=== PATIENT | male | born 1960 | race Caucasian/White ===

== ENCOUNTER 2017-01-25 16:48 | Emergency (ER) | payer MEDICAID ==
[~2017-01-25] VITALS: Ht 170.2 cm; Wt 88.5 kg
--- NOTE | 2017-01-25 17:00 | NUR ---
PT BIB [facility]/P MULTIPLE SZ EPISODES TODAY. NO HEAD TRAUMA OR ORAL TRAUMA. PT STATES HE FEELS "NOT RIGHT" AND "OFF", REPORTS VERY MILD SLURRING OF SPEECH COMPARED TO BASELINE BUT PT IS EASY TO UNDRSTAND. NO APHASIA. NO NEURO DEFICITS NOTED. A/OX4. NO OTHER STROKE SYMPTOMS NOTED. MD IS AWARE OF SLURRED SPEECH. RESP EVEN UNLABORED. SKIN WARM NONDIAPHORETIC. IN ER BED 11 ON MONITOR.
[2017-01-25 17:57] LABS: BASOPHILS # (AUTO) 0.1 /CMM (0.0-0.2); BASOPHILS % (AUTO) 2.5 % (0.0-2.0); EOSINOPHILS # (AUTO) 0.1 /CMM (0.0-0.7); EOSINOPHILS % (AUTO) 2.3 % (0.0-6.0); HEMATOCRIT 42 % (39-51); HEMOGLOBIN 14.6 g/dL (13.5-17.5); LYMPHOCYTES # (AUTO) 1.9 /CMM (0.8-4.8); LYMPHOCYTES % (AUTO) 34.1 % (20.0-44.0); MEAN CORPUSCULAR HEMOGLOBIN 31 PG (26.0-33.0); MEAN CORPUSCULAR HGB CONC 35 g/dl (31.0-36.0); MEAN CORPUSCULAR VOLUME 90 fL (80-96); MONOCYTES # (AUTO) 0.4 /CMM (0.1-1.30); MONOCYTES % (AUTO) 7.9 % (2.0-12.0); NEUTROPHILS # (AUTO) 3.1 /CMM (1.8-8.9); NEUTROPHILS % (AUTO) 53.2 % (43.0-81.0); PLATELET COUNT (AUTO) 236 /CMM (150-450); RDW COEFFICIENT OF VARIATION 12.4 (11.5-15.0); RED BLOOD CELL COUNT(AUTO) 4.67 MIL/uL (4.5-6.0); WHITE BLOOD COUNT (AUTO) 5.6 K/uL (4.3-11.0)
--- NOTE | 2017-01-25 18:42 | NUR ---
RESTING QUIETLY, NAD NOTED. NO FURTHER SEIZURE ACITIVITY NOTED. SEIZURE PRECAUTIONS REMAIN IN PLACE FOR SAFETY.
[2017-01-25 18:55] LABS: ACETAMINOPHEN 2 ug/ml (10-30); ALANINE AMINOTRANSFERASE 26 U/L (12-78); ALKALINE PHOSPHATASE 52 U/L (46-116); ASPARTATE AMINOTRANSFERASE 14 U/L (15-37); BILIRUBIN,TOTAL 0.2 mg/dL (0.2-1.0); CALCIUM, SERUM 9.1 mg/dL (8.5-10.1); CARBON DIOXIDE 27 mmol/L (21-32); CHLORIDE 101 mmol/L (98-107); CREATININE 1.1 mg/dL (0.6-1.3); POTASSIUM 4.3 mmol/L (3.5-5.1); SODIUM SERUM 138 mmol/L (136-145); TOTAL PROTEIN, SERUM 7.5 g/dL (6.4-8.2); UREA NITROGEN, BLOOD 18 mg/dL (7-18)
[2017-01-25 18:58] LABS: SALICYLATE 2.3 mg/dL (2.8-20.0)
--- NOTE | 2017-01-25 19:05 | NUR ---
PT REFUSES CT SCAN AT THIS TIME. NOTIFIED.
--- NOTE | 2017-01-25 19:19 | NUR ---
REPORT GIVEN TO BILL RENNER FOR J[facility]QU[facility]
--- NOTE | 2017-01-25 19:20 | NUR ---
RECEIVED REPORT FROM JUD RUSSELL
--- NOTE | 2017-01-25 19:25 | NUR ---
PT TO RADIOLOGY FOR HEAD CT.
--- NOTE | 2017-01-25 19:30 | NUR ---
PT RETURNED FROM RADIOLOGY
[2017-01-25 19:33] LABS: GLUCOSE 210 mg/dL (74-106)
[2017-01-25 19:40] LABS: ALCOHOL, BLOOD < 3 mg/dL (0-0)
--- NOTE | 2017-01-25 20:08 | NUR ---
IV removed. Catheter intact and site benign. Pressure and 4x4 applied to site. No bleeding noted. Patient discharged to home in stable condition. Written and verbal after care instructions given. Patient verbalizes understanding of instruction. ambulatory with a steady gait. instructed not to drive. pt verbalize understanding. pt accompanied by girlfriend
[2017-01-25 20:10] VITALS: BP 138/74
== END 2017-01-25 20:10 | disposition home or self-care (01) ==
LOC: ER 16:52
DX: G40.909 Epilepsy, unspecified, not intractable, without status epilepticus (principal); L40.9 Psoriasis, unspecified; Z86.73 Personal history of transient ischemic attack (TIA), and cerebral infarction without residual deficits
CPT/HCPCS: 36415; 70450; 80048; 80076; 80329; 85025; 93005 ×2; 96360; 99285; A4606; G0480 ×2